=== PATIENT | male | born 1965 | race Native Hawaiian/Other Pacific Islander ===

== ENCOUNTER 2018-09-09 07:32 | Emergency (ER) | payer OTHER ==
[~2018-09-09] VITALS: Ht 182.9 cm; Wt 95.3 kg
[2018-09-09 08:36] LABS: PLATELET COUNT 290 K/uL (142-355)
[2018-09-09 08:43] LABS: POTASSIUM 4.5 mmol/L (3.6-5.2)
[2018-09-09 09:22] VITALS: BP 121/80; TEMP 97.6
== END 2018-09-09 09:50 | disposition home or self-care (01) ==
LOC: ED 07:32
PROVIDERS: Emergency Medicine
DX: N20.0 Calculus of kidney (principal); D72.829 Elevated white blood cell count, unspecified; R31.9 Hematuria, unspecified
CPT/HCPCS: 36415; 80053; 81000; 85027; 96361; 96374; 99284; J0696; J1885